=== PATIENT | female | born 1985 | race Caucasian/White ===

== ENCOUNTER 2017-06-26 06:58 | Emergency (ER) | payer OTHER ==
[~2017-06-26] VITALS: Ht 170.2 cm; Wt 73.9 kg
--- NOTE | ~2017-06-26 | CR63 ---
[facility] A Service of [facility] [place] RADIOLOGY TEXT RESULTS PATIENT: segundo abdalla LOCATION: [facility] : [birth year] UNIT #: [id number] AGE: [address]: Austen Ray DO SEX: F ORDER DR: [id number] [facility] [address] [place], [place] [address] [id number] E MR#: [id number] Acc #: [id number] NAME: SEGUNDO ABDALLA : 1985 SEX: F STUDY DATE/TIME: 06/26/2017 7:59 UNIT: [facility] ROOM: STUDY DESCRIPTION: CR Chest 2 View Attending Physician: Austen Ray D.O. Ordering Physician: Austen Ray D.O. Primary Care Physician: Primary Care Physician No MEDICAL IMAGING REPORT This report is preliminary unless electronic signature is present EXAM Two views chest 06/26/2017 HISTORY Heart palpitations, short of air, 1 day duration. Smoker 5 years. FINDINGS PA and lateral radiographs of the chest are presented. No comparisons. No acute appearing bony abnormality. Heart and mediastinum normal in size and contour. Lungs are slightly hyperinflated bilaterally. Correlate with any known underlying chronic airway disease. There is no indication of acute pulmonary disease, pleural effusion or pneumothorax. No suspicious nodule. Calcified granuloma right upper lung zone. Dictated by... William Soriano M.D. THIS IS AN ELECTRONICALLY VERIFIED REPORT William Soriano M.D. at 06/27/2017 6:19 PM Ravinder TD: 06/26/2017 08:48 JOB #: [id number] MEDICAL IMAGING REPORT Page 1 of 1 COPY
--- NOTE | ~2017-06-26 | EKG ---
PATIENT: segundo abdalla UNIT #: [id number] Ventricular Rate: 62 BPM Atrial Rate: 62 BPM P-R Interval: 188 ms QRS Duration: 84 ms Q-T Interval: 458 ms QTC Calculation(Bezet): 464 ms P Bassett: 28 degrees Calculated R Bassett: 50 degrees Calculated T Bassett: 37 degrees Diagnosis Line: Normal sinus rhythm with sinus arrhythmia Diagnosis Line: Normal ECG Diagnosis Line: No previous ECGs available Diagnosis Line: Confirmed by VARGAS SU MD ([id number]) on Diagnosis Line: 06/27/2017 4:38:36 PM INTERPRETING MD: KLAUDIA
[2017-06-26 07:51] LABS: POC - CKMB <1.0 ng/mL (0.0-7.9); POC - TROPONIN <0.05 ng/mL (<=0.05)
[2017-06-26 07:57] LABS: BASOPHIL# 0.1 X10e3 (0-0.3); BASOPHIL% 0.7 % (0-2.5); EOSINOPHIL# 0.1 X10e3 (0-0.7); EOSINOPHIL% 1.2 % (0.0-7.0); HEMOGLOBIN 13.9 gm/dL (12.0-16.0); LYMPHOCYTE# 1.6 X10e3 (1.0-3.5); LYMPHOCYTE% 22.8 % (17.0-45.0); MEAN CORPUSCULAR HEMOGLOBIN 29.5 PG (28-34); MEAN CORPUSCULAR HGB CONC 34.7 g/dL (30-36); MEAN PLATELET VOLUME 10.7 FL (6.5-11.5); MONOCYTE# 0.5 X10e3 (0-1.0); MONOCYTE% 7.1 % (3.0-12.0); NEUTROPHIL# 4.9 X10e3 (1.5-7.1); NEUTROPHIL% 68.2 % (40-75); RED CELL DISTRIBUTION WIDTH 12.8 % (11.0-15.5); WHITE BLOOD COUNT 7.2 X10e3 (4.0-10.5)
[2017-06-26 08:13] LABS: DIFF IND NO; PLATELET COUNT 183 X10e3 (140-420)
[2017-06-26 08:14] LABS: BUN/CREATININE RATIO 17.5; CALCIUM SERUM 9.4 mg/dL (8.4-10.2); CREATININE SERUM 0.8 mg/dL (0.6-1.4); GLOM FILT RATE Estimated 97.6 mL/min (>60); POTASSIUM 3.5 mmol/L (3.5-5.1)
[2017-06-26 08:28] LABS: SALICYLATE <4.0 mg/dL
[2017-06-26 08:33] LABS: ACETAMINOPHEN <10 ug/mL
[2017-06-26 08:51] LABS: URINE SOURCE CLEAN CATCH
[2017-06-26 09:00] LABS: URINE APPEARANCE CLOUDY; URINE BLOOD NEG (NEG); URINE COLOR DK YELLOW; URINE GLUCOSE NEG (NEG); URINE KETONE 3+ (NEG); URINE LEUKOCYTE ESTERASE 2+ (NEG); URINE NITRATE POS (NEG); URINE PH 5.5 (5-8); URINE PROTEIN TRACE (NEG); URINE SPECIFIC GRAVITY 1.031 (1.003-1.035)
[2017-06-26 09:02] LABS: CULTURE INDICATED? YES; URBCS1 AUWI 0-2 /[HPF] (0-2); URINE BACTERIA AUWI 1+ (NEGATIVE); URINE SQUAMOUS EPITHELIAL CELL FEW /[HPF]; UWBCS1 AUWI 25-50 (0-5)
[2017-06-26 09:15] LABS: URINE BILIRUBIN NEG (NEG)
[2017-06-26 09:17] LABS: URINE CRYSTALS CALCIUM OXALATE /[HPF]; URINE MUCUS PRESENT
[2017-06-26 09:23] LABS: AMPHETAMINE NEG (NEG); BARBITURATES NEG (NEG); BENZODIAZEPINES POS (NEG); COCAINE NEG (NEG); MARIJUANA NEG (NEG); OPIATES POS (NEG); TRICYCLIC ANTIDEPRESSANTS NEG (NEG); U METHADONE NEG (NEG)
== END 2017-06-26 10:51 | disposition home or self-care (01) ==
LOC: CED 06:58
PROVIDERS: Emergency Medicine
DX: F19.939 Other psychoactive substance use, unspecified with withdrawal, unspecified (principal); N39.0 Urinary tract infection, site not specified; Z88.2 Allergy status to sulfonamides; Z88.1 Allergy status to other antibiotic agents; Z88.8 Allergy status to other drugs, medicaments and biological substances
CPT/HCPCS: 36415; 71020; 80048; 80307; 81003; 82553; 83735; 84484; 85025; 85379; 87086; 93005; 96365; 96375; 99284; G0480; J0696; J2060